=== PATIENT | female | born 1990 | race Caucasian/White ===

== ENCOUNTER 2017-03-06 10:37 | Day surgery (SDC) | payer OTHER ==
[~2017-03-06] VITALS: Ht 175.3 cm; Wt 106.6 kg
[2017-03-06] VITALS (9 sets, daily range): BP systolic 104–118; BP diastolic 63–86
--- NOTE | 2017-03-06 07:22 | Pre-Procedure Note/Attestation ---
Pre-Procedure Note/Attestation Complete Prior to Procedure Planned Procedure: bilateral Procedure Narrative: mastectomy Indications for Procedure Pre-Operative Diagnosis: gender dysphoria Attestation I attest that I discussed the nature of the procedure; its benefits; risks and complications; and alternatives (and the risks and benefits of such alternatives ), prior to the procedure, with the patient (or the patient's legal personal service representative). I attest that, if there was a reasonable possibility of needing a blood transfusion, the patient (or the patient's legal personal service representative) was given the [facility] standardized written summary, pursuant to the [employer] Blood Safety Act ([place] Health and Safety Code # 1645, as amended). I attest that I re-evaluated the patient just prior to the surgery and that there has been no change in the patient's H&P, except as documented below: AMELIA FRANCO M.D. Mar 06, 2017 07:22
[~2017-03-06 10:37] MED LIST: ceFAZolin sod 2 GM in NS 55 ML IVPB ONE
[2017-03-06] MEDS ORDERED: Morphine Sulfate 10mg/ml Inj ONE (10:38)
[2017-03-06] MEDS ORDERED: Midazolam 2mg/2ml Inj ONE (10:38)
[2017-03-06] MEDS ORDERED: Succinylcholine 20mg/ml 10ml vial ONE (10:38)
[2017-03-06] MEDS ORDERED: NS Irrig 1000ml ONE (10:38)
[2017-03-06] MEDS ORDERED: Neostigmine 1mg/ml 10ml Inj ONE (10:38)
[2017-03-06] MEDS ORDERED: Glycopyrrolate 0.2mg/ml 1ml Vial ONE (10:38)
[2017-03-06] MEDS ORDERED: Sterile Water Irrig 1000ml IRRIG ONE (10:38)
[2017-03-06] MEDS ORDERED: Ketorolac 30mg Inj ONE (10:38)
[2017-03-06] MEDS ORDERED: fentaNYL 100 mcg/2 mL IV ONE (10:38)
[2017-03-06] MEDS ORDERED: Zemuron 50mg/5ml Inj IV ONE (10:38)
[2017-03-06] MEDS ORDERED: SYNTHROID125 MCG ORAL (11:20)
[2017-03-06] MEDS ORDERED: TESTOSTERO200 MG/1 M IM (11:20)
[2017-03-06] MEDS ORDERED: BALSALAZIDE DI750 MG PO (11:20)
[2017-03-06] MEDS ORDERED: TransDerm Scop 1mg/72HR Patch TDERMAL ONE ×2 (11:57→13:30)
[2017-03-06] MEDS ORDERED: Muri-Lube ONE ×2 (11:58→14:11)
[2017-03-06] MEDS ORDERED: Lidocaine 1% 10mg/ml/Epi 0.005mg/ml 30ml vial INJ ONE (11:58)
[2017-03-06] MEDS ORDERED: Propofol 200mg/20ml IV ONE (11:58)
[2017-03-06] MEDS ORDERED: Bupivacaine 0.25% Inj 30ml INJ ONE (11:58)
[2017-03-06] MEDS ORDERED: Bacitracin Oint 15gm Tube TOPIC ONE (12:17)
[2017-03-06] MEDS ORDERED: LR 1000ml 1,000 ML IVLG SCH (13:18)
--- NOTE | 2017-03-06 13:18 | Anethesia Preoperative Eval ---
Anesthesia Pre-op PMH/ROS General Date of Evaluation: Mar 06, 2017 Time of Evaluation: 12:16 Anesthesiologist: [place] ASA Score: ASA 2 Mallampati Score Class I : Soft palate, uvula, fauces, pillars visible Class II: Soft palate, uvula, fauces visible Class III: Soft palate, base of uvula visible Class IV: Only hard plate visible Mallampati Classification: Class II Surgeon: Cris Diagnosis: Gender dysphoria Surgical Procedure: Bilateral mastectomy Anesthesia History: none Family History: no anesthesia problems Allergies: Coded Allergies: SULFA (SULFONAMIDE ANTIBIOTICS) (Verified Allergy, Severe, hives, fever, ) Medications: see eMAR Past Medical History Cardiovascular: Denies: HTN, CAD, [place], valve dz, arrhythmia, other Pulmonary: Denies: asthma, COPD, YUMIKO, other Gastrointestinal/Genitourinary: Reports: GERD - mild, Denies: CRI, ESRD, other Neurologic/Psychiatric: Reports: depression/anxiety, Denies: dementia, CVA, TIA, other Endocrine: Denies: DM, hypothyroidism, steroids, other HEENT: Denies: cataract (L), cataract (R), glaucoma, [place] (L), [place] (R), other Hematology/Immune: Denies: anemia, DVT, bleeding disorder, other Musculoskeletal/Integumentary: Denies: OA, RA, DJD, DDD, edema, other Other: obesity PMH Narrative: as above PSxH Narrative: None Anesthesia Pre-op Phys. Exam Physician Exam Last Vital Signs Date Time Temp Pulse Resp B/P (MAP) Pulse Ox O2 Delivery O2 Flow Rate FiO2 03/06/17 11:17 97.2 74 18 118/86 96 Room Air Constitutional: NAD Neurologic: CN 2-12 intact Cardiovascular: RRR, no M/R/G Respiratory: CTA Gastrointestinal: other - obesity Airway Exam Mallampati Score: Class II MO: full Neck: Flexible ROM: full Teeth: intact Dentures: no upper, no lower Anesthesia Pre-op A/P Labs see chart Urine Test Test 03/06/17 11:00 Urine HCG, Qualitative Negative Risk Assessment & Plan Assessment: ASA 2 Plan: GA with ETT PONV prevention Status Change Before Surgery: No Pre-Antibiotics Drug: Ancef 2 gr. Given Within 1 Hr of Incision: Yes Time Given: 12:58 BONIFACIO CASTRO M.D. Mar 06, 2017 13:18
[2017-03-06] MEDS ORDERED: Hydromorphone 0.5mg/0.5ml inj IVP PRN (13:30)
[2017-03-06] MEDS ORDERED: Midazolam 2mg/2ml Inj IVP PRN (13:30)
[2017-03-06] MEDS ORDERED: DiphenhydrAMINE 50mg/ml Inj IVP PRN (13:30)
[2017-03-06] MEDS ORDERED: Meperidine 50mg/ml Inj(FOR RIGORS ONLY) IV PRN ×2 (13:30)
[2017-03-06] MEDS ORDERED: Ketorolac 30mg Inj IV PRN (13:30)
--- NOTE | 2017-03-06 18:21 | Operative Note - PDOC ---
Operative Note Operative Note Date of Operation/Procedure: Mar 06, 2017 Pre-op Diagnosis: gender dysphoria Procedure: bilateral mastectomy, bilateral nipple areola reconstruction Post-op Diagnosis: same as pre-op Surgeon: Cris Anesthesia: general Specimen: yes - 1) right breast, 2) left breast Complications: none Condition: stable Estimated Blood Loss: volume - 150 cc Drains: RHYS - x2 Implant(s) used?: No AMELIA FRANCO M.D. Mar 06, 2017 18:21
[2017-03-06] MEDS ORDERED: D5 1/2NS 1,000 ML IV SCH (18:30)
[2017-03-06] MEDS ORDERED: HYDROmorphone 1mg/ml Carpuject SUBQ PRN (18:30)
[2017-03-06] MEDS ORDERED: Tylenol #3 tab (300mg/30mg) ORAL PRN (18:30)
[2017-03-06] MEDS ORDERED: Norco 5mg/325mg tab ORAL PRN (18:30)
--- NOTE | 2017-03-06 18:39 | Immediate Post-Op Evaluation ---
Immediate Post-Op Evalulation Immediate Post-Op Evalulation Procedure: Bilateral mastectomy with nipple reconstruction Date of Evaluation: Mar 06, 2017 Time of Evaluation: 18:37 IV Fluids: 2200 Blood Products: none Estimated Blood Loss: 250 Urinary Output: 200 Blood Pressure Systolic: 108 Blood Pressure Diastolic: 64 Pulse Rate: 96 Respiratory Rate: 20 O2 Sat by Pulse Oximetry: 99 Temperature (Fahrenheit): 98.6 Pain Score (1-10): 2 Nausea: No Vomiting: No Complications none Patient Status: patent, extubated, none Hydration Status: adequate BONIFACIO CASTRO M.D. Mar 06, 2017 18:38
--- NOTE | 2017-03-06 22:30 | Operative Note - Dictated ---
DATE OF OPERATION: 03/06/2017 PREOPERATIVE DIAGNOSIS: Gender dysphoria. POSTOPERATIVE DIAGNOSIS: Gender dysphoria. PROCEDURE: 1. Bilateral subcutaneous mastectomy. 2. Bilateral nipple areola reconstruction with full-thickness composite nipple areola graft (each graft 6.25 cm2). 3. Reconstruction of bilateral inferior mastectomy defect. SURGEON: Bernard Lynch M.D. ANESTHESIA: General. ESTIMATED BLOOD LOSS: 150 mL. SPECIMENS: 1. Right breast. 2. Left breast. DRAINS: A 15-Cuban Marcos x2. COMPLICATIONS: None. CONDITION TO RECOVERY ROOM: Stable. INDICATION FOR PROCEDURE: This is a very pleasant 26-year-old transgender male who has been undergoing the process of transition. He has the appropriate letter of support from his mental health therapist and he meets all WPATH criteria for top surgery. I have discussed the risks, benefits, and alternatives to the procedure with him including, but not limited to bleeding, infection, scarring, nerve injury, asymmetry, contour deformity, hematoma, seroma, loss of nipple sensation, loss of nipple graft and need for additional surgery including revisions. I discussed the orientation of the incisions and the unpredictable nature of scarring. No guarantees were made regarding the outcome. All of his questions have been answered to the best of my ability. He verbalized understanding with everything, we discussed and wishes to proceed. DESCRIPTION OF PROCEDURE: The patient was identified in the preoperative holding area and marked in the standing position. He was then brought to the operating room where he was placed in the supine position on the operating room table with his arms extended on arm boards. All bony prominences were adequately padded. Sequential compression devices were placed and intravenous antibiotics were administered. After induction of anesthesia, the patient's chest was prepped and draped in sterile fashion. Starting on the left breast first, the nipple areola complex was placed on manual stretch and a wainwright measuring 2.5 x 2.5 centimeters centered around the nipple was drawn out. Next, a #15 blade scalpel used to incise the markings and a full-thickness composite nipple areola graft was harvested. The graft was subsequently defatted and wrapped in wet gauze and placed on the back table. Next, the inframammary fold incision was made using a #10-blade scalpel. Dissection proceeded down through the subcutaneous tissues until the level of the underlying rectus abdominis and pectoralis major fascia was reached. Next, I then made the superior breast incision using a #10 blade scalpel. Dissection proceeded down to the level of Deborah's fascia. Skin hooks were used to retract the skin and a plane of dissection was created heading in a superior direction toward the level of the clavicle between the breast parenchyma and the subcutaneous tissues. After this was done, I then proceeded to elevate the breast tissue off of the pectoralis major fascia proceeding from a medial to a lateral direction. The breast was passed off the table as a specimen. Hemostasis was achieved and the wound was irrigated with saline. There was some minor oozing noted within the wound bed and 4 mL of Tisseel spray was placed on the raw surfaces. A 15-Cuban Marcos drain was then placed within the wound and brought out through a separate stab incision and secured using 2-0 silk suture. Next, I then proceeded to extend the incision laterally and in an oblique orientation towards the axilla. Skin hooks were used to retract the inferior skin, and a plane of dissection was created staying above the level of the rectus abdominal fascia and taking care to identify and preserve all intercostal perforators so as to preserve vascularity to the skin. Once this was done, I was then able to transpose the tissues in a superior and medial direction so as to reconstruct the inferior mastectomy defect such that the orientation of the incision was parallel to the inferior and lateral border of the pectoralis major muscle. After this was done, I shifted my attention to the contralateral side where the identical procedure was performed. Next, the patient was sat up on the operating room table. It appeared that he had reasonable symmetry between the two sides. There were dog ears noted laterally on each side, which were marked out in elliptical fashion using a marking pen. The proposed location of the nipple areola complex was also drawn on each side and it appeared symmetrical and confirmed with measurements. He was then placed back in the supine position. The dog ears were then excised using a #10 blade scalpel. On each side, the Deborah's fascia layer was reapproximated with interrupted 0 Vicryl suture. The skin alexander were removed. The dermal layer was closed with a 3-0 PDS suture followed by running 3-0 Monocryl suture for the skin. Next, each of the markings corresponding to the new location of the nipple areola complex was incised using a 15 blade scalpel. The skin was de-epithelialized. Each of the nipple areola full-thickness composite graft was then brought out and placed on the appropriate side of the chest and inset using a running 5-0 fast absorbing suture. Next, several 2-0 silk sutures were placed around the periphery of each graft. A skin graft bolster was fashioned and secured over each nipple areola graft and secured into place using the 2-0 silk suture. Next, a total of 40 mL consisting of equal parts 1% lidocaine with epinephrine and 0.25% plain Marcaine were injected into the incisions. Sterile dressings were then applied. The patient tolerated the procedure well and was sent to the recovery room in stable condition. All instrument, sharp and sponge counts were correct at the conclusion of the case. Bernard Lynch M.D. DR: IRENE JOB#: [id number] CC: ALEX
[2017-03-07 11:07] VITALS: BP 116/78
--- NOTE | 2017-03-07 11:07 | 48 Hour Post Anesthesia Eval ---
Post Anesthesia Evaluation Procedure: Bilateral mastectomy with nipple reconstruction Date of Evaluation: Mar 06, 2017 Time of Evaluation: 18:50 Blood Pressure Systolic: 116 0: 78 Pulse Rate: 82 Respiratory Rate: 20 Temperature (Fahrenheit): 97.6 O2 Sat by Pulse Oximetry: 98 Airway: patent Nausea: No Vomiting: No Pain Intensity: 2 Hydration Status: adequate Cardiopulmonary Status: stable Mental Status/LOC: patient returned to baseline Follow-up Care/Observations: n/a Post-Anesthesia Complications: none Follow-up care needed: ready to discharge BONIFACIO CASTRO M.D. Mar 07, 2017 11:07
== END 2017-03-06 12:40 | disposition home or self-care (01) ==
LOC: SUR 10:37
DX: F64.9 Gender identity disorder, unspecified (principal); K21.9 Gastro-esophageal reflux disease without esophagitis; F32.9 Major depressive disorder, single episode, unspecified; F41.9 Anxiety disorder, unspecified; Z88.2 Allergy status to sulfonamides; E66.9 Obesity, unspecified; Z68.34 Body mass index [BMI] 34.0-34.9, adult
CPT/HCPCS: 14001; 19304; 19350; 81025; J0330; J0690; J1885; J2250; J2270; J2405; J2704; J2710; J3010; J3490; 94003; 94150